=== PATIENT | female | born 1945 | race African-American/Black ===

== ENCOUNTER 2017-11-02 17:23 | Inpatient (IN) ==
[2017-11-02] MEDS ORDERED: KETOROLAC 30 MG/1 ML VIAL IV STA (17:42)
[2017-11-02] MEDS ORDERED: LABETALOL 20 MG/4 ML SYRINGE IV STA ×2 (18:36→19:51)
[2017-11-02 18:37] LABS: Apearance,Urine CLEAR (Clear); Bilirubin,Urine Negative (Negative); Blood, Urine Negative (Negative); Glucose,Urine (UA) Negative (Negative); Ketones,Urine Negative (Negative); Nitrite,Urine Negative (Negative); Protein,Urine 30 MG/DL; Squamous Epithelial Cell,Urine Occasional /HPF (0-10); Urine Color Straw (Yellow); Urine Specific Gravity 1.013 (1.001-1.035); Urine Urobilinogen < 2.0 EU/DL (0.2-1.0); WBC,Urine <1 /HPF (0-6)
[2017-11-02 19:10] LABS: Basophils # 0.1 10*3/uL (0.0-0.2); Basophils % 0.4 % (0.0-0.8); Eosinophils # 0.1 10*3/uL (0.0-0.87); Hematocrit 37.3 VOL% (35.7-47.0); Immature Granulocytes % 0.3 %; Immature Granulocytes Absolute 0.04 #; Lymphocytes # 2.7 10*3/uL (1.4-4.0); Lymphocytes % 23.4 % (21.3-54.2); Mean Corpuscular HGB Conc 34.9 GM/DL (32-36); Mean Corpuscular Hemoglobin 26 PG (27-34); Mean Corpuscular Volume 73.4 FL (87-102); Mean Platelet Volume 10.8 FL (9.6-12.0); Monocytes # 0.7 10*3/uL (0.11-0.8); Monocytes % 6.2 % (1.7-12.7); Neutrophils % 68.7 % (38.7-73.9); Platelet Count 299 T/CUMM (130-400); Red Blood Count 5.08 MC/CUMM (3.8-5.5); Red Cell Distribution Width 14.9 % (9.3-17.3); White Blood Count 11.7 T/CUMM (4-12)
[2017-11-02 19:40] LABS: Bilirubin,Total 0.4 MG/DL (0.2-1.0); Calcium 8.6 MG/DL (8.5-10.1); Osmolality,Calculated 280.4 MOS/KG (273-304); Potassium 3.6 MMOL/L (3.5-5.1); Total Protein 7.4 G/DL (6.4-8.3)
[2017-11-02] MEDS ORDERED: HYDROmorphone 2 MG/1 ML VIAL IV PRN (20:01)
[2017-11-02] MEDS ORDERED: ONDANSETRON 4 MG/2 ML VIAL IV PRN (20:01)
[2017-11-02] MEDS ORDERED: ACETAMINOPHEN 325 MG TABLET PO PRN (20:01)
[2017-11-02] MEDS ORDERED: LABETALOL 20 MG/4 ML SYRINGE IV PRN (20:03)
[2017-11-02] MEDS: DOCUSATE SODIUM 100 MG CAPSULE PO SCH ×2 (22:05→22:25)
[2017-11-02] MEDS: oxyCODONE/ACETAMINOPHEN 5-325 MG TABLET PO PRN (22:17)
[2017-11-03] MEDS: PRAVASTATIN 40 MG TABLET PO SCH (08:53)
[2017-11-03] MEDS: MELOXICAM 7.5 MG TABLET PO SCH ×2 (08:53→21:12)
[2017-11-03] MEDS: METOPROLOL SUCCINATE XL 50 MG TABLET PO SCH (08:53)
[2017-11-03] MEDS: PANTOPRAZOLE 40 MG TABLET PO SCH ×3 (08:54→21:12)
[2017-11-03] MEDS: metFORMIN 500 MG TABLET PO SCH (08:54)
[2017-11-03] MEDS: LOSARTAN/HCTZ 50-12.5 MG TABLET PO SCH (08:54)
[2017-11-03] MEDS: DOCUSATE SODIUM 100 MG CAPSULE PO SCH ×2 (08:55→21:12)
[2017-11-03] MEDS: GLIMEPIRIDE 4 MG TABLET PO SCH ×2 (08:55→21:12)
[2017-11-03] MEDS: oxyCODONE/ACETAMINOPHEN 5-325 MG TABLET PO PRN (21:11)
[2017-11-03] MEDS ORDERED: DEXTROSE 50% 25 GM/50 ML VIAL IV PRN (21:13)
[2017-11-03] MEDS ORDERED: GLUCAGON 1 MG VIAL IM PRN (21:13)
[2017-11-04] MEDS ORDERED: INSULIN LISPRO 100 UNIT/ML SUBCUT SCH (07:30)
[2017-11-04 08:26] VITALS: BP 163/86
[2017-11-04] MEDS: metFORMIN 500 MG TABLET PO SCH (09:57)
[2017-11-04] MEDS: DOCUSATE SODIUM 100 MG CAPSULE PO SCH (09:57)
[2017-11-04] MEDS: METOPROLOL SUCCINATE XL 50 MG TABLET PO SCH (09:57)
[2017-11-04] MEDS: PRAVASTATIN 40 MG TABLET PO SCH (09:57)
[2017-11-04] MEDS: PANTOPRAZOLE 40 MG TABLET PO SCH ×2 (09:58)
[2017-11-04] MEDS: MELOXICAM 7.5 MG TABLET PO SCH (09:58)
[2017-11-04] MEDS: LOSARTAN/HCTZ 50-12.5 MG TABLET PO SCH (09:58)
[2017-11-04] MEDS: GLIMEPIRIDE 4 MG TABLET PO SCH (09:58)
== END 2017-11-04 10:44 | disposition home or self-care (01) | DRG 305 ==
LOC: EDBD → EDUNIT# → N.ED 17:23 → N.EDINP 20:01 → N.TELEN 20:19
PROVIDERS: ADMIT Family Medicine; ATTEND Family Medicine

== ENCOUNTER 2019-07-24 13:54 | Inpatient (IN) ==
[2019-07-24] MEDS ORDERED: traMADol 50 MG TABLET PO PRN (15:49)
[2019-07-24] MEDS ORDERED: ACETAMINOPHEN 325 MG TABLET PO PRN (15:49)
[2019-07-24] MEDS ORDERED: DEXTROSE 50% 25 GM/50 ML VIAL IV PRN (15:49)
[2019-07-24] MEDS ORDERED: GLUCAGON 1 MG VIAL IM PRN (15:49)
[2019-07-24] MEDS ORDERED: ONDANSETRON 4 MG/2 ML VIAL IV PRN (15:49)
[2019-07-24] MEDS ORDERED: hydrALAZINE 20 MG/1 ML VIAL IV PRN (15:53)
[2019-07-24] MEDS ORDERED: ALBUTEROL/IPRATROPIUM 3 ML NEB RESP TX PRN (15:53)
[2019-07-24] MEDS ORDERED: MAGNESIUM SULF RIDER 2 GM in PREMIX 1 EACH IV PRN (15:55)
[2019-07-24] MEDS ORDERED: MAGNESIUM SULF RIDER 4 GM in PREMIX 1 EACH IV PRN (15:55)
[2019-07-24] MEDS ORDERED: POTASSIUM CHLORIDE RIDER 10 MEQ in PREMIX 1 EACH IV PRN (15:55)
[2019-07-24 16:37] LABS: Basophils % 0.3 % (0.0-0.8); Eosinophils # 0.1 10*3/uL (0.0-0.87); Eosinophils % 1.2 % (0.00-10.9); Hematocrit 38.1 VOL% (35.7-47.0); Hemoglobin 13.1 GM/DL (12.0-16.0); Immature Granulocytes % 0.6 %; Immature Granulocytes Absolute 0.06 #; Lymphocytes # 3.9 10*3/uL (1.4-4.0); Lymphocytes % 41.1 % (21.3-54.2); Mean Corpuscular HGB Conc 34.4 GM/DL (32-36); Mean Corpuscular Volume 74.7 FL (87-102); Mean Platelet Volume 10.4 FL (9.6-12.0); Monocytes % 6.6 % (1.7-12.7); Neutrophils % 50.2 % (38.7-73.9); Platelet Count 318 T/CUMM (130-400); Red Cell Distribution Width 13.8 % (9.3-17.3); White Blood Count 9.4 T/CUMM (4-12)
[2019-07-24] MEDS: INSULIN LISPRO 100 UNIT/ML SUBCUT SCH ×2 (16:54→19:50)
[2019-07-24 16:58] LABS: Albumin 3.8 G/DL (3.4-5.0); Bilirubin,Total 0.7 MG/DL (0.2-1.0); Calcium 9.5 MG/DL (8.5-10.1); Osmolality,Calculated 272.8 MOS/KG (273-304); Total Protein 7.3 G/DL (6.4-8.3)
[2019-07-24] MEDS: methylPREDNISolone SOD SUC 40 MG/1 ML VIAL IV SCH (19:04)
[2019-07-24] MEDS: cefTRIAXone 1,000 MG in SYRINGE 1 EACH IV SCH (19:07)
[2019-07-24] MEDS: AZITHROMYCIN INJ 500 MG in SODIUM CHLORIDE 0.9% 250 ML IV SCH (19:10)
[2019-07-24] MEDS: ALBUTEROL/IPRATROPIUM 3 ML NEB RESP TX SCH ×2 (19:29→23:43)
[2019-07-24] MEDS: DOCUSATE SODIUM 100 MG CAPSULE PO SCH (22:46)
[2019-07-24] MEDS: cloNIDine 0.1 MG TABLET PO SCH (22:46)
[2019-07-24] MEDS: GLIMEPIRIDE 4 MG TABLET PO SCH (22:46)
[2019-07-25] MEDS: ALBUTEROL/IPRATROPIUM 3 ML NEB RESP TX SCH ×5 (03:13→19:50)
[2019-07-25 05:53] LABS: Basophils % 0.1 % (0.0-0.8); Hemoglobin 12.4 GM/DL (12.0-16.0); Immature Granulocytes % 0.8 %; Immature Granulocytes Absolute 0.08 #; Lymphocytes # 1.8 10*3/uL (1.4-4.0); Lymphocytes % 18.5 % (21.3-54.2); Mean Corpuscular HGB Conc 35.4 GM/DL (32-36); Mean Corpuscular Volume 74.2 FL (87-102); Mean Platelet Volume 10.7 FL (9.6-12.0); Monocytes % 3.7 % (1.7-12.7); Neutrophils % 76.9 % (38.7-73.9); Platelet Count 300 T/CUMM (130-400); Red Blood Count 4.72 MC/CUMM (3.8-5.5); Red Cell Distribution Width 13.7 % (9.3-17.3); White Blood Count 9.8 T/CUMM (4-12)
[2019-07-25] MEDS: methylPREDNISolone SOD SUC 40 MG/1 ML VIAL IV SCH ×2 (06:06→16:50)
[2019-07-25 06:17] LABS: Calcium 8.8 MG/DL (8.5-10.1); Osmolality,Calculated 277.2 MOS/KG (273-304)
[2019-07-25 07:11] LABS: Apearance,Urine CLEAR (Clear); Bacteria,Urine Occasional /HPF (Few); Bilirubin,Urine Negative (Negative); Blood, Urine Negative (Negative); Glucose,Urine (UA) >=500 mg/dL (Negative); Ketones,Urine 5 mg/dL (Negative); Mucus,Urine Occasional /LPF (Occasional); Nitrite,Urine Negative (Negative); Protein,Urine Negative; RBC,Urine 1 /HPF (0-4); Squamous Epithelial Cell,Urine Occasional /HPF (0-10); Urine Color Straw (Yellow); Urine Specific Gravity 1.022 (1.001-1.035); Urine Urobilinogen < 2.0 EU/DL (0.2-1.0); WBC,Urine <1 /HPF (0-6)
[2019-07-25] MEDS: INSULIN LISPRO 100 UNIT/ML SUBCUT SCH ×4 (08:20→22:27)
[2019-07-25] MEDS: METOPROLOL SUCCINATE XL 50 MG TABLET PO SCH (10:00)
[2019-07-25] MEDS: GLIMEPIRIDE 4 MG TABLET PO SCH ×2 (10:00→22:27)
[2019-07-25] MEDS: LOSARTAN/HCTZ 50-12.5 MG TABLET PO SCH (10:00)
[2019-07-25] MEDS: PANTOPRAZOLE 40 MG TABLET PO SCH (10:00)
[2019-07-25] MEDS: DOCUSATE SODIUM 100 MG CAPSULE PO SCH ×2 (10:00→22:27)
[2019-07-25] MEDS: cefTRIAXone 1,000 MG in SYRINGE 1 EACH IV SCH (16:53)
[2019-07-25] MEDS: AZITHROMYCIN INJ 500 MG in SODIUM CHLORIDE 0.9% 250 ML IV SCH (16:56)
[2019-07-25] MEDS ORDERED: SIMVASTATIN 20 MG TABLET PO SCH (17:00)
[2019-07-25] MEDS: SIMVASTATIN 20 MG TABLET PO SCH (17:31)
[2019-07-25] MEDS: cloNIDine 0.1 MG TABLET PO SCH (22:26)
[2019-07-26] MEDS: ALBUTEROL/IPRATROPIUM 3 ML NEB RESP TX SCH ×7 (00:07→22:35)
[2019-07-26] MEDS: methylPREDNISolone SOD SUC 40 MG/1 ML VIAL IV SCH ×2 (05:21→17:11)
[2019-07-26] MEDS: INSULIN LISPRO 100 UNIT/ML SUBCUT SCH ×4 (09:31→22:23)
[2019-07-26] MEDS: PANTOPRAZOLE 40 MG TABLET PO SCH (09:32)
[2019-07-26] MEDS: GLIMEPIRIDE 4 MG TABLET PO SCH ×2 (09:32→22:23)
[2019-07-26] MEDS: LOSARTAN/HCTZ 50-12.5 MG TABLET PO SCH (09:32)
[2019-07-26] MEDS: METOPROLOL SUCCINATE XL 50 MG TABLET PO SCH (09:32)
[2019-07-26] MEDS: DOCUSATE SODIUM 100 MG CAPSULE PO SCH ×2 (09:38→22:23)
[2019-07-26] MEDS ORDERED: MAGNESIUM HYDROXIDE SUSP 30 ML UDCUP PO PRN (12:25)
[2019-07-26] MEDS ORDERED: MAGNESIUM HYDROXIDE SUSP 30 ML UDCUP PO ONE (12:25)
[2019-07-26] MEDS ORDERED: DEXTROMETHORPHAN ER 6 MG/ML 90 ML/BOTTLE PO PRN (12:26)
[2019-07-26] MEDS ORDERED: cloNIDine 0.1 MG TABLET PO ONE (12:45)
[2019-07-26] MEDS: cefTRIAXone 1,000 MG in SYRINGE 1 EACH IV SCH (17:14)
[2019-07-26] MEDS: AZITHROMYCIN INJ 500 MG in SODIUM CHLORIDE 0.9% 250 ML IV SCH (17:56)
[2019-07-26] MEDS: cloNIDine 0.1 MG TABLET PO SCH (22:23)
[2019-07-26] MEDS: SIMVASTATIN 20 MG TABLET PO SCH (22:23)
[2019-07-27] MEDS: ALBUTEROL/IPRATROPIUM 3 ML NEB RESP TX SCH ×6 (02:35→23:51)
[2019-07-27] MEDS: methylPREDNISolone SOD SUC 40 MG/1 ML VIAL IV SCH ×2 (05:02→16:05)
[2019-07-27] MEDS: METOPROLOL SUCCINATE XL 50 MG TABLET PO SCH (08:34)
[2019-07-27] MEDS: LOSARTAN/HCTZ 50-12.5 MG TABLET PO SCH (08:34)
[2019-07-27] MEDS: PANTOPRAZOLE 40 MG TABLET PO SCH (08:34)
[2019-07-27] MEDS: INSULIN LISPRO 100 UNIT/ML SUBCUT SCH ×4 (08:34→21:48)
[2019-07-27] MEDS: DOCUSATE SODIUM 100 MG CAPSULE PO SCH ×2 (08:34→21:47)
[2019-07-27] MEDS: GLIMEPIRIDE 4 MG TABLET PO SCH ×2 (08:35→21:47)
[2019-07-27] MEDS: cefTRIAXone 1,000 MG in SYRINGE 1 EACH IV SCH (16:08)
[2019-07-27] MEDS: AZITHROMYCIN INJ 500 MG in SODIUM CHLORIDE 0.9% 250 ML IV SCH (16:11)
[2019-07-27] MEDS: SIMVASTATIN 20 MG TABLET PO SCH (21:47)
[2019-07-27] MEDS: cloNIDine 0.1 MG TABLET PO SCH (21:47)
[2019-07-28] MEDS: ALBUTEROL/IPRATROPIUM 3 ML NEB RESP TX SCH ×6 (03:59→23:40)
[2019-07-28] MEDS: methylPREDNISolone SOD SUC 40 MG/1 ML VIAL IV SCH ×3 (04:19→23:46)
[2019-07-28 05:19] LABS: Basophils % 0.1 % (0.0-0.8); Eosinophils % 0.1 % (0.00-10.9); Hemoglobin 11.8 GM/DL (12.0-16.0); Immature Granulocytes Absolute 0.12 #; Lymphocytes # 3.1 10*3/uL (1.4-4.0); Lymphocytes % 24.8 % (21.3-54.2); Mean Corpuscular HGB Conc 34.7 GM/DL (32-36); Mean Corpuscular Volume 74.2 FL (87-102); Mean Platelet Volume 10.8 FL (9.6-12.0); Monocytes % 8.3 % (1.7-12.7); NRBC # 0.02 10*3/uL; Neutrophils % 65.7 % (38.7-73.9); Platelet Count 302 T/CUMM (130-400); Red Blood Count 4.58 MC/CUMM (3.8-5.5); Red Cell Distribution Width 13.6 % (9.3-17.3); White Blood Count 12.3 T/CUMM (4-12)
[2019-07-28 05:43] LABS: Calcium 8.3 MG/DL (8.5-10.1); Osmolality,Calculated 281.2 MOS/KG (273-304)
[2019-07-28] MEDS: LOSARTAN/HCTZ 50-12.5 MG TABLET PO SCH (09:02)
[2019-07-28] MEDS: DOCUSATE SODIUM 100 MG CAPSULE PO SCH ×2 (09:03→20:13)
[2019-07-28] MEDS: METOPROLOL SUCCINATE XL 50 MG TABLET PO SCH (09:03)
[2019-07-28] MEDS: GLIMEPIRIDE 4 MG TABLET PO SCH ×2 (09:03→20:13)
[2019-07-28] MEDS: PANTOPRAZOLE 40 MG TABLET PO SCH (09:03)
[2019-07-28] MEDS: INSULIN LISPRO 100 UNIT/ML SUBCUT SCH ×4 (09:05→20:13)
[2019-07-28] MEDS: cefTRIAXone 1,000 MG in SYRINGE 1 EACH IV SCH (15:38)
[2019-07-28] MEDS: AZITHROMYCIN INJ 500 MG in SODIUM CHLORIDE 0.9% 250 ML IV SCH (15:39)
[2019-07-28] MEDS ORDERED: HYDROcodone/HOMATROPINE 5 ML UDCUP PO PRN (18:30)
[2019-07-28] MEDS: SIMVASTATIN 20 MG TABLET PO SCH (20:13)
[2019-07-29] MEDS: ALBUTEROL/IPRATROPIUM 3 ML NEB RESP TX SCH ×5 (03:33→19:08)
[2019-07-29 05:48] LABS: Risk Ratio 2.02; VLDL CHOLESTEROL 11.2 MG/DL
[2019-07-29] MEDS: methylPREDNISolone SOD SUC 40 MG/1 ML VIAL IV SCH ×3 (09:39→23:33)
[2019-07-29] MEDS: INSULIN LISPRO 100 UNIT/ML SUBCUT SCH ×4 (09:40→21:02)
[2019-07-29] MEDS: GLIMEPIRIDE 4 MG TABLET PO SCH ×2 (09:56→21:02)
[2019-07-29] MEDS: metFORMIN 500 MG TABLET PO SCH (09:57)
[2019-07-29] MEDS: DOCUSATE SODIUM 100 MG CAPSULE PO SCH ×2 (09:57→21:02)
[2019-07-29] MEDS: LOSARTAN/HCTZ 50-12.5 MG TABLET PO SCH (09:59)
[2019-07-29] MEDS: METOPROLOL SUCCINATE XL 50 MG TABLET PO SCH (09:59)
[2019-07-29] MEDS: PANTOPRAZOLE 40 MG TABLET PO SCH (09:59)
[2019-07-29] MEDS: AZITHROMYCIN INJ 500 MG in SODIUM CHLORIDE 0.9% 250 ML IV SCH (16:31)
[2019-07-29] MEDS: cefTRIAXone 1,000 MG in SYRINGE 1 EACH IV SCH (16:43)
[2019-07-29] MEDS: SIMVASTATIN 20 MG TABLET PO SCH (21:02)
[2019-07-30] MEDS: ALBUTEROL/IPRATROPIUM 3 ML NEB RESP TX SCH ×7 (00:53→23:53)
[2019-07-30 05:51] LABS: Basophils % 0.2 % (0.0-0.8); Hematocrit 35.8 VOL% (35.7-47.0); Hemoglobin 12.4 GM/DL (12.0-16.0); Immature Granulocytes % 1.2 %; Immature Granulocytes Absolute 0.16 #; Lymphocytes # 1.6 10*3/uL (1.4-4.0); Lymphocytes % 12.1 % (21.3-54.2); Mean Corpuscular HGB Conc 34.6 GM/DL (32-36); Mean Corpuscular Volume 74.6 FL (87-102); Mean Platelet Volume 10.8 FL (9.6-12.0); Monocytes % 4.9 % (1.7-12.7); NRBC # 0.02 10*3/uL; Neutrophils % 81.6 % (38.7-73.9); Platelet Count 319 T/CUMM (130-400); Red Cell Distribution Width 13.8 % (9.3-17.3)
[2019-07-30 06:32] LABS: Calcium 8.3 MG/DL (8.5-10.1); Free T4 (Free Thyroxine) 1.16 NG/DL (0.76-1.46); Osmolality,Calculated 282.4 MOS/KG (273-304)
[2019-07-30] MEDS: methylPREDNISolone SOD SUC 40 MG/1 ML VIAL IV SCH ×2 (08:16→16:41)
[2019-07-30] MEDS: INSULIN LISPRO 100 UNIT/ML SUBCUT SCH ×4 (08:16→22:01)
[2019-07-30] MEDS: GLIMEPIRIDE 4 MG TABLET PO SCH ×2 (08:16→21:27)
[2019-07-30] MEDS: PANTOPRAZOLE 40 MG TABLET PO SCH (08:17)
[2019-07-30] MEDS: metFORMIN 500 MG TABLET PO SCH (08:17)
[2019-07-30] MEDS: LOSARTAN/HCTZ 50-12.5 MG TABLET PO SCH (08:17)
[2019-07-30] MEDS: METOPROLOL SUCCINATE XL 50 MG TABLET PO SCH (08:17)
[2019-07-30] MEDS: DOCUSATE SODIUM 100 MG CAPSULE PO SCH ×2 (08:18→21:27)
[2019-07-30] MEDS: cefTRIAXone 1,000 MG in SYRINGE 1 EACH IV SCH (16:46)
[2019-07-30] MEDS: AZITHROMYCIN INJ 500 MG in SODIUM CHLORIDE 0.9% 250 ML IV SCH (17:16)
[2019-07-30] MEDS: SIMVASTATIN 20 MG TABLET PO SCH (21:27)
[2019-07-31] MEDS: methylPREDNISolone SOD SUC 40 MG/1 ML VIAL IV SCH ×3 (00:37→12:11)
[2019-07-31] MEDS: ALBUTEROL/IPRATROPIUM 3 ML NEB RESP TX SCH ×5 (03:48→19:58)
[2019-07-31 05:01] LABS: Basophils % 0.1 % (0.0-0.8); Hematocrit 34.7 VOL% (35.7-47.0); Hemoglobin 12.3 GM/DL (12.0-16.0); Immature Granulocytes % 1.2 %; Immature Granulocytes Absolute 0.16 #; Lymphocytes # 1.7 10*3/uL (1.4-4.0); Mean Corpuscular HGB Conc 35.4 GM/DL (32-36); Mean Corpuscular Volume 73.7 FL (87-102); Mean Platelet Volume 10.7 FL (9.6-12.0); Monocytes % 6.4 % (1.7-12.7); Neutrophils % 79.3 % (38.7-73.9); Platelet Count 297 T/CUMM (130-400); Red Blood Count 4.71 MC/CUMM (3.8-5.5); Red Cell Distribution Width 13.8 % (9.3-17.3); White Blood Count 12.9 T/CUMM (4-12)
[2019-07-31 05:53] LABS: Calcium 8.6 MG/DL (8.5-10.1); Osmolality,Calculated 281.5 MOS/KG (273-304)
[2019-07-31] MEDS ORDERED: BISACODYL 10 MG SUPP RECTAL ONE (08:36)
[2019-07-31] MEDS: INSULIN LISPRO 100 UNIT/ML SUBCUT SCH ×4 (08:53→21:05)
[2019-07-31] MEDS: PANTOPRAZOLE 40 MG TABLET PO SCH (08:54)
[2019-07-31] MEDS: metFORMIN 500 MG TABLET PO SCH (08:54)
[2019-07-31] MEDS: DOCUSATE SODIUM 100 MG CAPSULE PO SCH ×2 (08:54→20:47)
[2019-07-31] MEDS: LOSARTAN/HCTZ 50-12.5 MG TABLET PO SCH (08:54)
[2019-07-31] MEDS: GLIMEPIRIDE 4 MG TABLET PO SCH ×2 (08:54→20:47)
[2019-07-31] MEDS: METOPROLOL SUCCINATE XL 50 MG TABLET PO SCH (09:01)
[2019-07-31] MEDS: cefTRIAXone 1,000 MG in SYRINGE 1 EACH IV SCH (16:49)
[2019-07-31] MEDS: AZITHROMYCIN INJ 500 MG in SODIUM CHLORIDE 0.9% 250 ML IV SCH (16:55)
[2019-07-31] MEDS: SIMVASTATIN 20 MG TABLET PO SCH (20:47)
[2019-08-01] MEDS: ALBUTEROL/IPRATROPIUM 3 ML NEB RESP TX SCH ×4 (00:06→10:27)
[2019-08-01] MEDS: methylPREDNISolone SOD SUC 40 MG/1 ML VIAL IV SCH ×2 (00:36→12:40)
[2019-08-01 05:50] LABS: Basophils % 0.2 % (0.0-0.8); Hematocrit 35.1 VOL% (35.7-47.0); Hemoglobin 12.3 GM/DL (12.0-16.0); Immature Granulocytes % 1.6 %; Immature Granulocytes Absolute 0.18 #; Lymphocytes % 17.7 % (21.3-54.2); Mean Corpuscular Volume 73.9 FL (87-102); Mean Platelet Volume 10.9 FL (9.6-12.0); Monocytes % 6.3 % (1.7-12.7); Neutrophils % 74.2 % (38.7-73.9); Platelet Count 295 T/CUMM (130-400); Red Blood Count 4.75 MC/CUMM (3.8-5.5); Red Cell Distribution Width 13.8 % (9.3-17.3); White Blood Count 11.3 T/CUMM (4-12)
[2019-08-01 06:17] LABS: Calcium 8.4 MG/DL (8.5-10.1); Osmolality,Calculated 280.4 MOS/KG (273-304)
[2019-08-01] MEDS: metFORMIN 500 MG TABLET PO SCH (08:50)
[2019-08-01] MEDS: INSULIN LISPRO 100 UNIT/ML SUBCUT SCH ×2 (08:50→12:40)
[2019-08-01] MEDS: METOPROLOL SUCCINATE XL 50 MG TABLET PO SCH (08:50)
[2019-08-01] MEDS: LOSARTAN/HCTZ 50-12.5 MG TABLET PO SCH (08:50)
[2019-08-01] MEDS: DOCUSATE SODIUM 100 MG CAPSULE PO SCH (08:50)
[2019-08-01] MEDS: PANTOPRAZOLE 40 MG TABLET PO SCH (08:50)
[2019-08-01] MEDS: GLIMEPIRIDE 4 MG TABLET PO SCH (08:51)
[2019-08-01 12:27] VITALS: BP 158/73
[2019-08-01] MEDS ORDERED: CEFUROXIME 500 MG TABLET PO SCH (14:30)
[2019-08-01] MEDS ORDERED: PIOGLITAZONE 15 MG TABLET PO SCH (15:00)
[2019-08-01] MEDS ORDERED: metFORMIN 500 MG TABLET PO SCH (17:00)
[2019-08-02] MEDS ORDERED: LEVOTHYROXINE 50 MCG TABLET PO SCH (06:30)
== END 2019-08-01 15:59 | disposition home or self-care (01) | DRG 194 ==
LOC: N.5E → SUATTDRO 07-25 14:47
PROVIDERS: ADMIT Family Medicine; ATTEND Family Medicine

== ENCOUNTER 2022-06-15 16:54 | Observation (INO) ==
[2022-06-15] MEDS ORDERED: DEXTROSE 50% 25 GM/50 ML VIAL IV STA (17:24)
[2022-06-15] MEDS ORDERED: LABETALOL 20 MG/4 ML SYRINGE IV STA (17:25)
[2022-06-15] MEDS ORDERED: DEXTROSE 50% 25 GM/50 ML SYRINGE IV STA (17:28)
[2022-06-15 17:42] LABS: Basophils % 0.3 % (0.0-0.8); Eosinophils # 0.1 10*3/uL (0.0-0.87); Eosinophils % 0.9 % (0.00-10.9); Hematocrit 41.8 VOL% (35.7-47.0); Hemoglobin 14.3 GM/DL (12.0-16.0); Immature Granulocytes % 0.6 %; Immature Granulocytes Absolute 0.05 #; Lymphocytes # 2.2 10*3/uL (1.4-4.0); Lymphocytes % 24.3 % (21.3-54.2); Mean Corpuscular HGB Conc 34.2 GM/DL (32-36); Mean Corpuscular Volume 75.6 FL (87-102); Monocytes # 0.7 10*3/uL (0.11-0.8); Monocytes % 8.1 % (1.7-12.7); Neutrophils % 65.8 % (38.7-73.9); Platelet Count 304 T/CUMM (130-400); Red Blood Count 5.53 MC/CUMM (3.8-5.5); Red Cell Distribution Width 14.8 % (9.3-17.3)
[2022-06-15 18:01] LABS: Alanine Aminotransferase 39 U/L (13-56); Albumin 4.3 G/DL (3.4-5.0); Alkaline Phosphatase 89 U/L (45-117); Aspartate Amino Transferase 59 U/L (0-37); Bilirubin,Total < 0.39 MG/DL (0.20-1.00); Blood Urea Nitrogen 23 MG/DL (7-18); Calcium 9.7 MG/DL (8.5-10.1); Carbon Dioxide 31 MMOL/L (21-32); Chloride 106 MMOL/L (98-107); Osmolality,Calculated 276.5 MOS/KG (273-304); Potassium 3.7 MMOL/L (3.5-5.1); Sodium 139 MMOL/L (136-145)
[2022-06-15 18:03] LABS: Glucose 30 MG/DL (74-106)
[2022-06-15] MEDS ORDERED: hydrALAZINE 20 MG/1 ML VIAL IV PRN (19:31)
[2022-06-15] MEDS ORDERED: DOCUSATE SODIUM 100 MG CAPSULE PO PRN (19:31)
[2022-06-15] MEDS ORDERED: ONDANSETRON 4 MG/2 ML VIAL IV PRN (19:31)
[2022-06-15] MEDS: cloNIDine 0.1 MG TABLET PO SCH (23:02)
[2022-06-15] MEDS: DEXTROSE 5% NACL 0.45% 1,000 ML IV SCH (23:03)
[2022-06-15] MEDS: ENOXAPARIN 40 MG/0.4 ML SYRINGE SUBCUT SCH (23:03)
[2022-06-15] MEDS: SIMVASTATIN 20 MG TABLET PO SCH (23:03)
[2022-06-15] MEDS: INSULIN REGULAR 100 UNIT/ML SUBCUT SCH (23:04)
[2022-06-16] MEDS: LEVOTHYROXINE 50 MCG TABLET PO SCH (05:31)
[2022-06-16 06:00] LABS: Calcium 8.4 MG/DL (8.5-10.1); Osmolality,Calculated 287.7 MOS/KG (273-304); Potassium 3.8 MMOL/L (3.5-5.1)
[2022-06-16 06:05] LABS: Folate 13.88 NG/ML (5.38-24.0); Vitamin B12 361 PG/ML (211-911)
[2022-06-16 06:19] LABS: % Iron Saturation 20.1 % (18-50); Ferritin 29.6 ng/mL (8-252)
[2022-06-16 06:51] LABS: Basophils % 0.4 % (0.0-0.8); Eosinophils # 0.2 10*3/uL (0.0-0.87); Eosinophils % 2.3 % (0.00-10.9); Hematocrit 32.5 VOL% (35.7-47.0); Immature Granulocytes % 0.3 %; Immature Granulocytes Absolute 0.02 #; Lymphocytes # 2.6 10*3/uL (1.4-4.0); Lymphocytes % 37.3 % (21.3-54.2); Mean Corpuscular HGB Conc 33.8 GM/DL (32-36); Mean Corpuscular Volume 76.1 FL (87-102); Mean Platelet Volume 12.2 FL (9.6-12.0); Monocytes # 0.6 10*3/uL (0.11-0.8); Monocytes % 8.9 % (1.7-12.7); Neutrophils % 50.8 % (38.7-73.9); Platelet Count 217 T/CUMM (130-400); Red Blood Count 4.27 MC/CUMM (3.8-5.5); Red Cell Distribution Width 14.6 % (9.3-17.3)
[2022-06-16 07:04] LABS: Sedimentation Rate-Westergren 15 MM/HR (0-30)
[2022-06-16] MEDS: ASPIRIN EC 81 MG TABLET PO SCH (09:30)
[2022-06-16] MEDS: LOSARTAN 50 MG TABLET PO SCH (09:30)
[2022-06-16] MEDS: PANTOPRAZOLE 40 MG TABLET PO SCH (09:30)
[2022-06-16] MEDS: cloNIDine 0.1 MG TABLET PO SCH ×2 (09:30→20:37)
[2022-06-16] MEDS: INSULIN REGULAR 100 UNIT/ML SUBCUT SCH ×4 (09:32→20:37)
[2022-06-16] MEDS: DEXTROSE 5% NACL 0.45% 1,000 ML IV SCH (12:09)
[2022-06-16] MEDS ORDERED: ACETAMINOPHEN 325 MG TABLET PO PRN (12:13)
[2022-06-16] MEDS: SIMVASTATIN 20 MG TABLET PO SCH (20:37)
[2022-06-16] MEDS: ENOXAPARIN 40 MG/0.4 ML SYRINGE SUBCUT SCH (20:38)
[2022-06-17 05:05] LABS: Calcium 8.5 MG/DL (8.5-10.1); Osmolality,Calculated 286.5 MOS/KG (273-304); Potassium 4.1 MMOL/L (3.5-5.1)
[2022-06-17] MEDS: LEVOTHYROXINE 50 MCG TABLET PO SCH (05:44)
[2022-06-17 07:58] VITALS: BP 153/80
[2022-06-17] MEDS: INSULIN REGULAR 100 UNIT/ML SUBCUT SCH ×2 (08:48→13:19)
[2022-06-17] MEDS: PANTOPRAZOLE 40 MG TABLET PO SCH (08:48)
[2022-06-17] MEDS: ASPIRIN EC 81 MG TABLET PO SCH (08:48)
[2022-06-17] MEDS: cloNIDine 0.1 MG TABLET PO SCH (08:48)
[2022-06-17] MEDS: LOSARTAN 50 MG TABLET PO SCH (08:48)
[2022-06-17] MEDS ORDERED: metFORMIN 500 MG TABLET PO SCH (17:00)
[2022-06-18] MEDS ORDERED: PIOGLITAZONE 15 MG TABLET PO SCH (09:00)
[2022-06-20 11:45] LABS: Hb A 66.7 % (95.8-98.0); Hb A2 3.3 % (2.0-3.3); Hb F 0 % (0.0-0.9); Variant 1 30.0 Hb C % (0.0)
[2022-06-21 06:45] LABS: Hemoglobin A1 (Alkaline) 65.4 % (96.5-98.5); Hemoglobin C (Alkaline) 34.6 %
[2022-06-21 09:05] LABS: Hgb Elect Summary Review SEE COMMENTS
== END 2022-06-17 13:05 | disposition home or self-care (01) ==
LOC: N.ED 16:54 → N.EDINP 16:54 → SUATTDRO 19:02 → N.3E 20:05
PROVIDERS: ADMIT Internal Medicine; ATTEND Internal Medicine